=== PATIENT | female | born 1995 | race Caucasian/White ===

== ENCOUNTER 2019-05-30 14:32 | Outpatient (CLI) | payer OTHER ==
--- NOTE | 2019-05-30 15:36 | SLEEP CARE CONSULTATION ---
Information from patient questionnaire entered by Edita Graves. I have reviewed and concur with the information entered by Edita Graves. This document represents the service I personally performed and the decisions made by me, Lila Ramsay MD, [facility]. History of Present Illness Reason for Visit: New patient Chief Complaint: reports: Unrefreshed sleep, Excessive daytime sleepiness, Fatigue, Frequent awakenings at night Duration of Symptoms: 10/2018 Usual bedtime: 2200 Time it takes to fall asleep: 30 minute+ Snores at night: Yes Sleeps alone due to snoring: No Number of times waking at night: 1-3 Reasons for waking at night: reports: Snoring, Other (talking, unknown reasons, dreams) Toss, Turn, or Twitch while sleeping: Yes Recalls having dreams: Yes (sometimes, only immediately after) Usually gets out of bed at: 0530 Feels refreshed in the morning: No Morning headache: Yes (prior to meds) Sleepy or fatigued during the day: Yes Ever fallen asleep while driving: No Takes day naps: No Dreams during day naps: No Prior sleep studies: No Additional HPI information: I had the pleasure of seeing Ms. Mae today regarding the possibility of her having a sleep disorder. As you know, she is a 24 year old lady who complains of frequent awakenings, unrefreshed sleep, persistent fatigue, and excessive daytime sleepiness for the past 9 months. The patient tells me that she normally goes to bed around 10 pm, and it takes her approximately 30 minutes to fall asleep. She has been told that she snores loudly and irregularly at night. She has never been observed to stop breathing in her sleep. However, she sleeps alone. She can recall waking up on the average of 1 - 3 times during the night. Most of the time she wakes up because of no apparent reason. She has awakened occasionally because of her own snoring, choking, and having to gasp for air. There is a lot of tossing and turning in her sleep. She has somniloquy (sleep talking) but not somnambulism (sleep walking). Generally she can recall having dreams. In the morning she usually gets up out of the bed around 5:30 a.m. not feeling refreshed nor rested. She usually has a morning headache. During the day she complains of feeling sleepy and fatigued. Her score on [place] Sleepiness Scale is 12 out of 24. She has never fallen asleep while driving nor has had any accident due to sleepiness. She usually does not take naps during the day. Upon falling asleep during the day she denies having vivid dreams. She has never had sleep paralysis, experienced cataplexy but reports symptoms of restless leg syndrome. She reports having impaired concentration during the day. Subjective Initial [place] Sleepiness Scale score: 12 Past Medical History Past Medical History: reports: Attention deficit, Other (PCOS, Migraines) Social History The patient's occupation is a [employer]. Patient is Single and lives in [place]. Have you smoked in the past 12 months: No Alcohol use: Yes Alcohol amount and frequency: socially Caffeine use: No Family History Family history of sleep disordered breathing: Yes Family Hx Sleep Apnea: Father: Sleep apnea - Treated Allergies and Home Medications Drug allergies reviewed: Yes (sulfa drugs) Home medication list reviewed: Yes (Adderall, Ritalin, metformin, topiramate, BCP) Review of Systems Weight gain over past 5 years: 30 Weight loss over past 5 years: 30 Cardiovascular: denies: high blood pressure, palpitations, chest pain, irregular heart rate or pulse, leg or foot swelling, have to sleep sitting up, other Respiratory: denies: shortness of breath, wheeze, sputum production, chronic cough, other Gastrointestinal: denies: heartburn, difficulty swallowing, nausea, vomitting, diarrhea, abdominal pain, other Urinary: denies: incontinence, frequency, urgency, impotence, other Neurological: reports: headaches Psychiatric: reports: Attention Deficit Hyperactivity Ear/Nose/Throat: reports: wisdom teeth removed Endocrine: denies: thyroid disease, history of goiter, sluggishness, too hot or cold, excessive thirst, increased appetite, increased urination, unexplained weakness, other Musculoskeletal: reports: other (broke left ankle/foot full/partial tears of both ligament/tendon) Immunologic: denies: sneezing, rash, itching, allergies to food or environment, other Physical Exam Vital signs obtained and entered by: Dr. Ramsay Blood Pressure: 135/89 Cuff size: regular Heart Rate: 71 O2 Saturation: 99 Height: 5 ft 2 in Weight: 160 lb Body Mass Index: 29.2 BMI Classification: Overweight Neck circumference: 14 Mood/affect: normal HEENT: No craniofacial malformation Nostrils: patent to airflow Turbinates: normal Septum: midline Mouth and throat: narrow oropharynx Soft palate: long Hard palate: normal Uvula: normal Uvula visualization: 50% Mallampati Class II Tongue: enlarged in size with teeth lvoe on lateral edges Tonsils: small Chin and jaw: normal size and position Neck: normal w/o lymphadenopathy or thyromegaly Heart: regular rate and rhythm Lungs: clear bilaterally Abdomen: soft, non-tender Extremities: no edema or clubbing Neurologic: intact, no focal deficits Impression and Plan IMPRESSION: 1. Hypersomnia, improved with the stimulants prescribed to her a month ago. The etiology is unclear and could be anything from insufficient sleep syndrome to sleep disrupting conditions. The patient does snore and may have sleep- disordered breathing. Narrow oropharynx and obesity are common predisposing factors for obstructive sleep apnea-hypopnea syndrome. I recommend proceeding to an in-laboratory polysomnography to further evaluate her complaint. I informed the patient of what the sleep studies involve and after some discussion, she agreed to proceed. Plan: 1. Schedule an in-laboratory polysomnography. She may take all her usual medication the day of the sleep study. 2. Return in 1 to 2 weeks after the study to discuss results. I spent 100% of this visit face to face with the patient with greater than 50% of this was spent time counseling the patient and coordination of care.
[2019-05-30 15:37] VITALS: BP 135/89
== END 2019-05-30 14:33 | disposition home or self-care (01) ==
LOC: EDBD → SC 14:32
PROVIDERS: ATTEND Internal Medicine Pulmonary Disease
DX: G47.10 Hypersomnia, unspecified (principal); R06.83 Snoring
CPT/HCPCS: 99203; 99212

== ENCOUNTER 2019-06-21 13:46 | Outpatient (CLI) | payer OTHER ==
[2019-06-21 14:46] VITALS: BP 126/85
--- NOTE | 2019-06-21 14:46 | SLEEP CARE CONSULTATION ---
Information from patient questionnaire entered by Tona Riley. I have reviewed and concur with the information entered by Tona Riley. This document represents the service I personally performed and the decisions made by me, Soila Aponte RN, MSN, [employer]. History of Present Illness Initial [place] Sleepiness Scale score: 12 Current [place] Sleepiness Scale score: 10 Additional HPI information: ABDULKADIR ROCHE returns for follow up and results of the recently performed polysomnography. The patient was informed of the following findings: I explained the pathophysiology behind obstructive sleep apnea. Patient does not have sleep apnea and was advised how weight gain could increase the risk of developing sleep apnea in the future. I strongly encouraged the patient to lose weight. Patient has mild intermittent snoring. Snoring can be reduced by weight loss. Weight loss is best achieved with diet consult. Patient instructed to contact PCP for referral. Snoring can also be treated with an oral appliance from a dentist. Advised to check insurance coverage. Patient not interested at this time. In addition, an ENT evaluation can be do to see if other treatment is indicated. Patient counseled not drink alcohol less than 4 hours before bedtime as it can increase snoring and apnea. Patient was cautioned about risks of drowsy driving until sleepiness symptoms resolve. Patient denies drowsy driving. [facility] patient education on snoring and sleep apnea given and reviewed. Sleep Study - Results Polysomnography/Home Sleep Study results: The quality of the study is good. The patient had normal sleep efficiency. The sleep architecture was relatively normal considering the first-night effect. Respiratory monitoring showed no significant sleep disordered breathing (AHI = 0.6) or hypoxia (natasha oxygen saturation of 94%). The patient slept adequately in supine position (supine AHI = 0.5; non-supine = 1.09). Snore was infrequent and light in intensity. There was no significant periodic leg movement of sleep. Cardiac rhythm was normal sinus rhythm without significant arrhythmia. No abnormal behavior (parasomnia) observed during the night. Allergies and Home Medications Home medication list reviewed: Yes Allergy and home medication list: adderral EX 30mg daily adderral 5mg metformin 500mg bid toprimax daily control vitamin D 50,000 weekly Review of Systems Review of systems same as previous: Yes Physical Exam Blood Pressure: 126/85 Cuff size: wrist Heart Rate: 88 O2 Saturation: 98 Height: 5 ft 2 in Weight: 163 lb (with boots and fatigues ) Body Mass Index: 29.8 BMI Classification: Overweight Impression and Plan 1. Snoring but no significant sleep disordered breathing. Patient advised that often weight loss will reduce snoring as well as apnea risk. A diet consulta tion from PCP can be helpful in achieving weight loss goals. An oral appliance can also be used for snoring. This would require a dental consultation. Patient cautioned not to use other online appliances as can cause bite issues. Patient is not interested at this time. An ENT consult can also be helpful to determine if any other treatment is an option. After some discussion, the patient would like to work on weight loss and has already started to lose weight. 2. Nightmares about every 3 months , generally when stressed. She reports that they can be very intense. She is advised how stress can be a cause of nightmares as well as PTSD. Thus advised to follow up with PCP for counseling as needed for stress reduction. * Follow up with PCP for further evaluation of stress / counseling referral * Attempt to lose weight * consider diet consultation * Avoid alcohol consumption near bedtime * The patient is cautioned about driving until sleepiness is completely resolved. * Return as needed. Time Spent with Patient (minutes): 25 I spent 100% of this visit face to face with the patient with greater than 50% of this was spent time counseling the patient and coordination of care.
== END 2019-06-21 13:47 | disposition home or self-care (01) ==
LOC: SC 13:46 → EDBD 07-17 15:30
PROVIDERS: ATTEND Nurse Practitioner Family
DX: R06.83 Snoring (principal); F51.5 Nightmare disorder; E66.3 Overweight; Z68.29 Body mass index [BMI] 29.0-29.9, adult
CPT/HCPCS: 99212; 99214

== ENCOUNTER 2020-02-08 08:00 | Outpatient (CLI) | payer OTHER ==
[2020-02-09 22:12] LABS: TRICHOMONAS VAGINALIS DNA NEGATIVE (NEGATIVE)
== END 2020-02-08 23:59 | disposition home or self-care (01) ==
LOC: LAB.R 08:00
PROVIDERS: ATTEND Obstetrics & Gynecology
DX: Z11.3 Encounter for screening for infections with a predominantly sexual mode of transmission (principal)
CPT/HCPCS: 87491; 87591; 87661

== ENCOUNTER 2020-05-01 08:00 | Outpatient (CLI) | payer OTHER ==
[2020-05-01 22:12] LABS: TRICHOMONAS VAGINALIS DNA NEGATIVE (NEGATIVE)
== END 2020-05-01 08:01 | disposition home or self-care (01) ==
LOC: LAB.R 08:00
PROVIDERS: ATTEND Obstetrics & Gynecology
DX: Z11.3 Encounter for screening for infections with a predominantly sexual mode of transmission (principal)
CPT/HCPCS: 87491; 87591; 87661